=== PATIENT | female | born 1985 | race African-American/Black ===

== ENCOUNTER 2023-08-21 00:04 | Emergency (ER) | payer MEDICAID, MEDICARE ==
[~2023-08-21] VITALS: Ht 157.5 cm; Wt 50.0 kg
[2023-08-21 00:06] VITALS: O2SAT 92
[2023-08-21 00:10] VITALS: PULSE 56; RESP 16
[2023-08-21] MEDS ORDERED: ONDANSETRON HCL 4MG/2ML INJ IV STA (00:10)
[2023-08-21] MEDS ORDERED: SODIUM CHLORIDE 0.9% 1,000 ML IV ONE (00:15)
[2023-08-21] MEDS ORDERED: ETOMIDATE 2MG/ML 10ML VIAL IV ONE (00:15)
[2023-08-21] MEDS ORDERED: PROPOFOL 10MG/ML 100ML 100 ML IV ONE (00:15)
[2023-08-21] MEDS ORDERED: SUCCINYLCHOLINE CHLORIDE 200MG/10ML IV ONE (00:15)
[2023-08-21 00:30] LABS: BASOPHILS % 0.5 % (0.0-2.0); DIFFERENTIAL COMMENT 0; EOSINOPHILS % 0.1 % (0.0-5.0); HEMATOCRIT. 37.9 % (36.0-48.0); HEMOGLOBIN. 11.5 g/dL (12.0-16.0); LYMPHOCYTES % 21.4 % (20.0-50.0); MEAN CORPUSCULAR HEMOGLOBIN 25.5 pg (28.0-32.0); MEAN CORPUSCULAR HGB CONC 30.5 g/dL (31.0-37.0); MEAN CORPUSCULAR VOLUME 83.7 fL (81.0-99.0); MEAN PLATELET VOLUME 8.1 fl (7.4-10.4); MONOCYTES % 5.9 % (2.0-8.0); NEUTROPHILS % 72.1 % (40.0-76.0); PLATELET 241 x1000/uL (130-400); RED BLOOD CELL COUNT 4.53 mill/uL (4.2-5.4); RED CELL DISTRIBUTION WIDTH 16.7 % (11.6-14.6); WHITE BLOOD COUNT 14.4 x1000/uL (4.5-11.0)
[2023-08-21 00:36] LABS: CLARITY URINE CLEAR (CLEAR); COLOR URINE YELLOW (YELLOW); GLUCOSE URINE TRACE (NEGATIVE); KETONES URINE NEGATIVE (NEGATIVE); LEUKOCYTE ESTERASE URINE NEGATIVE (NEGATIVE); NITRITE URINE NEGATIVE (NEGATIVE); OCCULT BLOOD URINE 1+ (NEGATIVE); PH URINE 7.5 (4.5-8.0); PROTEIN URINE 2+ (NEGATIVE); SPECIFIC GRAVITY URINE 1.011 (1.005-1.030); UROBILINOGEN URINE 0.2 E.U./dL (0.2-1.0)
[2023-08-21 00:45] LABS: *AMPHETAMINES SCREEN URINE NEGATIVE (NEGATIVE); *BARBITURATES SCREEN URINE NEGATIVE (NEGATIVE); *BENZODIAZEPINES SCREEN URINE NEGATIVE (NEGATIVE); *COCAINE SCREEN URINE PRESUMPTIVE POSITIVE (NEGATIVE); CANNABINOID URINE SCREEN PRESUMPTIVE POSITIVE (NEGATIVE); ECSTASY MDMA SCREEN URINE NEGATIVE (NEGATIVE); METHADONE URINE SCREEN Neg (NEGATIVE); OPIATES URINE SCREEN NEGATIVE (NEGATIVE); PHENCYCLIDINE URINE SCREEN NEGATIVE (NEGATIVE)
[2023-08-21] MEDS ORDERED: DEXAMETHASONE 10 MG/ML VIAL IV ONE (00:45)
[2023-08-21] MEDS ORDERED: MANNITOL 20% 250 ML IV ONE (00:45)
[2023-08-21] MEDS ORDERED: MANNITOL 20% 250 ML IV NR (00:45)
[2023-08-21] MEDS ORDERED: LEVETIRACETAM 500MG PREMIX 100 ML IV ONE (00:45)
[2023-08-21 00:49] LABS: HCG SCREEN NEGATIVE
[2023-08-21 01:24] VITALS: TEMP 97.5
[2023-08-21 01:25] LABS: LACTIC ACID 4.4 mmol/L (0.4-2.0)
[2023-08-21 01:33] LABS: SQUAMOUS EPITHELIAL CELL URINE FEW /lpf (RARE/1+)
[2023-08-21 01:36] LABS: BACTERIA URINE NONE SEEN
[2023-08-21] MEDS ORDERED: IOHEXOL-350 100 ML BOTTLE ONE (01:40)
[2023-08-21 01:50] VITALS: PULSE 58; RESP 17
[2023-08-21 01:52] LABS: BG BASE EXCESS -5.4 mmol/L (-2.0-2.0); BG CARBOXYHEMOGLOBIN 0.1 % (0.5-1.5); BG DEOXYHEMOGLOBIN 0.5 % (0.0-5.0); BG FRACTION INSPIRED OXYGEN 100; BG HCO3 ACT 18.4 mmol/L (22.0-26.0); BG METHEMOGLOBIN 0.1 % (0.0-1.5); BG OXYGEN SATURATION 99.5 % (92.0-98.5); BG OXYHEMOGLOBIN 99.3 % (94.0-97.0); BG PCO2 30.2 mmHg (35.0-45.0); BG PH 7.402 (7.350-7.450); BG PO2 543.9 mmHg (75.0-100.0); BG SAMPLE SITE CPB CIRCUIT; BG TOTAL RESPIRATORY RATE 17 b/min; BG VENT MODE VENT - AC
[2023-08-21 02:05] LABS: INR 1.1
[2023-08-21 02:06] LABS: CALCIUM 8.6 mg/dL (8.7-10.4); CARBON DIOXIDE 16 mEq/L (21-32); CHLORIDE 105 mEq/L (98-107); CREATININE 0.9 mg/dL (0.6-1.0); GLUCOSE 211 mg/dL (70-105); POTASSIUM 4.7 mEq/L (3.5-5.1); SODIUM 138 mEq/L (136-145); UREA NITROGEN BLOOD 5 mg/dL (9-23)
[2023-08-21 02:07] LABS: ALANINE AMINOTRANSFERASE 27 IU/L (10-49); ALBUMIN 4.2 g/dL (3.2-4.8); ASPARTATE AMINOTRANSFERASE 60 IU/L (<34); BILIRUBIN TOTAL 0.4 mg/dL (0.1-1.0); PROTEIN TOTAL 6.9 g/dL (6.0-8.3)
[2023-08-21 02:08] LABS: ACETAMINOPHEN < 2 ug/mL (10-30)
[2023-08-21 02:12] LABS: TROPONIN I HIGH SENSITIVITY 113 ng/L (3.0-34)
[2023-08-21 02:34] LABS: ETHANOL BLOOD < 10 mg/dL (<10)
[2023-08-21 02:39] LABS: TROPONIN I HIGH SENSITIVITY 1038 ng/L (3.0-34)
[2023-08-21] MEDS ORDERED: NICARDIPINE 50 MG in SODIUM CHLORIDE 0.9% 230 ML IV STA (02:39)
[2023-08-21] MEDS ORDERED: NICARDIPINE 40 MG/200 ML PREMIX 200 ML IV NR (02:45)
[2023-08-21 02:55] VITALS: BP 113/81; PULSE 98; RESP 16
== END 2023-08-21 03:31 | disposition short-term general hospital (02) ==
LOC: ER 00:04 → EDBEDREQ 00:37 → ER 03:31 → CANBEDREQ 08-22 15:52
DX: I72.9 Aneurysm of unspecified site (principal); I49.9 Cardiac arrhythmia, unspecified
CPT/HCPCS: 80053; 80305; 81003; 80307; 80329; 80320; 84703; 83605; 83930; 85025; 85610; 84484; 36415; 71045; 70496; 82805; 82375; 31500 ×2; 70450; 93005; 96367; 96361; 96365; 96375; 99291; 36600; Q9967; Z7610 ×4; J1953; J1100; J2405; J2704; J7030; 94003; J3490; J7050; G0480